=== PATIENT | female | born 1975 | race Caucasian/White ===

== ENCOUNTER → 2016-07-28 | Outpatient (CLI) | payer BC ==
--- NOTE | 2016-07-28 09:02 | US ---
EXAMINATION TYPE: US abdomen complete DATE OF EXAM: 07/28/2016 COMPARISON: NONE CLINICAL HISTORY: R10.13 epigastric pain. EXAM MEASUREMENTS: Liver Length: 14.7 cm Gallbladder Wall: 0.2 cm CBD: 0.4 cm Spleen: 12.0 cm Right Kidney: 9.7 x 3.9 x 5.6 cm Left Kidney: 9.5 x 4.9 x 5.2 cm Pancreas: wnl Liver: wnl Gallbladder: wnl Evidence for sonographic Fraire's sign: no CBD: wnl Spleen: Triangular area of hypoechogenicity with hyper vascularity ? Infectious process? Right Kidney: No hydronephrosis or masses seen Left Kidney: No hydronephrosis or masses seen Upper IVC: prominent Abd Aorta: wnl The pancreas is unremarkable. The liver is normal in size without biliary dilatation. The gallbladder is normal without cholelithiasis. Gallbladder wall measures 1.7 mm. The distal common hepatic duct measures 3.7 mm. The spleen is normal in size there is an area of hypoechogenicity in the periphery of the spleen. Thi s is mildly hypervascular. Both kidneys are normal. Visualized portions of aorta and IVC are normal. IMPRESSION: ABNORMAL APPEARANCE TO THE SPLEEN. A CT SCAN OF THE ABDOMEN WOULD BE SUGGESTED
== END | disposition home or self-care (01) ==
LOC: RADUSMAIN 07:31
PROVIDERS: ATTEND Family Medicine
DX: D73.9 Disease of spleen, unspecified (principal); R10.13 Epigastric pain
CPT/HCPCS: 76700